=== PATIENT | female | born 1960 | race Caucasian/White ===

== ENCOUNTER 2017-05-20 10:29 | Emergency (ER) | payer OTHER ==
[2017-05-20 10:50] VITALS: BP 131/89
--- NOTE | 2017-05-20 12:09 | ERNOTE ---
Lower Extremity HPI - General Lower Extremities Pain: foot: left, ankle: left Time Seen by Provider: 05/20/17 11:09 Source: patient - Immun/Allergies/Home Medications Immunizations: IMMUNIZATION HX Immunizations Up to Date Yes History of Influenza Vaccine No Allergies/Adverse Reactions: Allergies Allergy/AdvReac Type Severity Reaction Status Date / Time levofloxacin [From Levaquin] Allergy Intermediate Verified 05/20/17 10:53 Penicillins Allergy Intermediate Verified 05/20/17 10:53 Sulfa (Sulfonamide Allergy Intermediate Verified 05/20/17 10:53 Antibiotics) - History of Present Illness Narrative: Patient tripped on a stair at a wedding yesterday and now has pain in the left foot and left ankle area. Patient states that she has some pain with weightbearing and has the obvious swelling present. Occurred: yesterday Location of Incident: other - at a wedding Method of Injury: Reports: twisted - patient missed a step Reason for Fall: Reports: tripped Loss of Consciousness: Reports: no loss of consciousness Associated Symptoms: Reports: other injuries - painful weightbearing Other Injuries: Reports: none Review of Systems - Review of Systems Constitutional: Present: See HPI EYE: Present: no symptoms reported ENT: Present: no symptoms reported Respiratory: Present: no symptoms reported Cardiology: Present: no symptoms reported Gastrointestinal/Abdominal: Present: no symptoms reported Genitourinary: Present: no symptoms reported Musculoskeletal: Present: See HPI Skin: Present: no symptoms reported Neurological: Present: no symptoms reported Endocrine: Present: no symptoms reported Hematologic/Lymphatic: Present: no symptoms reported Psych: Present: no symptoms reported - Patient's Past Medical History Patient History - Medical: No pertinent hx Patient History - Cardiac/Respiratory: No pertinent hx Patient History - Cancer: No Hx of Cancer Patient History - Surgical Procedures: Orthopedic Patient History - Other: None - Social History Living Situations: home Abuse History: No History of abuse Psych History: No pertinent hx Smoking Status: Never smoker Have you smoked in the past 12 months: No Do you dip or chew tobacco: No Patient requests Smoking Cessation Consult: No Initiate information on Smoking Cessation: No Alcohol Use: none Drug Use: none - Immunizations Immunizations Up to Date: Yes History of Influenza Vaccine: No Physical Exam - Physical Exam General Appearance: Present: wd/wn, alert, moderate distress Eye Exam: Normal inspection: bilateral, PERRL: bilateral Ears, Nose, Throat: Present: normal ENT inspection, H, normal pharynx Neck: Present: normal inspection, nontender Respiratory: Present: no respiratory distress, normal breath sounds, no accessory muscle use, chest nontender, lungs clear Cardiovascular/Chest: Present: regular rate, rhythm, no murmur, normal peripheral pulses Gastrointestinal/Abdominal: Present: normal bowel sounds, nontender, nondistended, soft, no organomegaly Rectal Exam: Present: deferred Back Exam: Present: normal inspection, normal range of motion Extremity Exam: Present: decreased range of motion, joint swelling Neurological Exam: Present: alert, oriented, normal mood/affect Skin Exam: Present: normal color, warm/dry Lymphatic Exam: Present: no adenopathy ED Progress - Vital Signs Patient's Vital Signs:: I have reviewed the patient's vital signs. 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 She states that Tylenol or Advil as working recently for the pain and states there is no need for a stronger pain medication at this time. Departure Clinical Impression: Avulsion fracture - Departure Disposition: Home self-care Condition: Good Instructions: Avulsion Fracture of the Foot
== END 2017-05-20 12:10 | disposition home or self-care (01) ==
LOC: ER 10:29
PROC: 2W3RX1Z Immobilization of Left Lower Leg using Splint (ICD-10-PCS; principal; 2017-05-20)
DX: S82.892A Other fracture of left lower leg, initial encounter for closed fracture (principal); W01.0XXA Fall on same level from slipping, tripping and stumbling without subsequent striking against object, initial encounter